=== PATIENT | female | born 1990 | race Caucasian/White ===

== ENCOUNTER 2021-04-16 05:30 | Inpatient (IN) | payer OTHER ==
[2021-04-16 06:46] VITALS: BMI 30.2
[2021-04-16] MEDS ORDERED: Ondansetron PF 4 MG/2 ML Vial IVP PRN ×2 (08:07→15:20)
[2021-04-16] MEDS ORDERED: Promethazine HCl 25 MG/ML VIAL IM PRN ×2 (08:07→15:20)
[2021-04-16] MEDS ORDERED: Lidocaine 1% (PF) 30 ML VIAL SC PRN (08:07)
[2021-04-16] MEDS ORDERED: hydrALAZINE 20 MG/ML VIAL SLOW IVP PRN ×2 (08:07→15:20)
[2021-04-16] MEDS ORDERED: Butorphanol Tartrate 1 MG/ML VIAL SLOW IVP PRN (08:13)
[2021-04-16] MEDS ORDERED: HYDROcodone/Acetaminophen 5/325 mg Tablet PO PRN ×2 (08:13→15:20)
[2021-04-16] MEDS ORDERED: Diphenoxylate HCl/Atropine Tablet PO PRN ×2 (08:13)
[2021-04-16] MEDS ORDERED: Methylergonovine 0.2 MG/ML VIAL IM PRN ×2 (08:13→15:20)
[2021-04-16] MEDS ORDERED: Ibuprofen 800 MG TAB PO PRN (08:13)
[2021-04-16] MEDS ORDERED: Misoprostol 200 MCG TAB PR PRN (08:13)
[2021-04-16] MEDS ORDERED: Docusate 100 MG CAP PO PRN (08:13)
[2021-04-16] MEDS ORDERED: Carboprost 250 MCG/ML AMP IM PRN (08:13)
[2021-04-16] MEDS ORDERED: Acetaminophen 500 MG TAB PO PRN (08:13)
[2021-04-16] MEDS ORDERED: Lactated Ringer's 1,000 ML IV SCH (08:15)
[2021-04-16] MEDS ORDERED: NS w/ Oxytocin 30 units 500 ML IV SCH ×3 (08:15→15:20)
[2021-04-16] MEDS ORDERED: NS w/ Oxytocin 30 units 500 ML IVPB SCH (08:15)
[2021-04-16 08:26] LABS: Hemoglobin 10.5 g/dL (12.0-15.5); Mean Corpuscular HGB CONC 32.4 g/dL (32.0-36.0); Mean Corpuscular Volume 83.3 fl (81.6-98.3); Platelet Count 180 10x3/uL (150-450); RBC Distribution Width 13.6 % (11.5-14.5); Red Blood Cell (RBC) Count 3.89 10x6/uL (3.90-5.03); White Blood Cell (WBC) Count 9.9 10x3/uL (3.5-10.5)
[2021-04-16 08:35] LABS: ALT (SGPT) 12 U/L (8-55); AST (SGOT) 17 U/L (5-34); Albumin 3.5 g/dL (3.5-5.0); Alkaline Phosphatase 83 U/L (40-110); Anion Gap 14 mmol/L (10-20); BUN (Urea Nitrogen) 8 mg/dL (7.0-18.7); Bilirubin, Total 0.2 mg/dL (0.2-1.2); Calc. Creatinine Clearance 171 mL/min (70-130); Calcium 8.5 mg/dL (7.8-10.44); Carbon Dioxide 21 mmol/L (22-29); Chloride 107 mmol/L (98-107); Globulin 2.4 g/dL (2.4-3.5); Glucose 113 mg/dL (70-105); Potassium 3.7 mmol/L (3.5-5.1); Protein, Total 5.9 g/dL (6.0-8.3); Sodium 138 mmol/L (136-145)
[2021-04-16 08:40] LABS: SARS-CoV-2 NAA Rapid Test Not Detected (NotDetected)
[2021-04-16 08:55] LABS: Hep B Surf Ag Non-Reactive S/CO (NonReactive); Syphilis Antibody Nonreactive (Nonreactive); Syphilis Antibody Index 0.05 S/CO (<1.00 Non-Reactive)
[2021-04-16] MEDS ORDERED: NS w/ Oxytocin 30 units 500 ML ONE (08:56)
[2021-04-16 09:00] LABS: HBSAg Index 0.21 S/CO (0-0.99)
[2021-04-16] MEDS ORDERED: Measles/Mumps/Rubella 10 MCG/0.5 ML VIAL SC ONE (15:20)
[2021-04-16] MEDS ORDERED: Varicella virus, LIVE 0.5 ML VIAL SC ONE (15:20)
[2021-04-16] MEDS ORDERED: Benzocaine-Menthol 82.5 ML CAN TOP PRN (15:20)
[2021-04-16] MEDS ORDERED: Zolpidem Tartrate 5 MG TAB PO PRN (15:20)
[2021-04-16] MEDS ORDERED: Preparation H Ointment 28 GM TUBE PR PRN (15:20)
[2021-04-16] MEDS ORDERED: Bisacodyl 10 MG SUPP PR PRN (15:20)
[2021-04-16] MEDS ORDERED: Milk Of Magnesia 30 ML UDCUP PO PRN (15:20)
[2021-04-16] MEDS ORDERED: Misoprostol 200 MCG TAB VAG PRN (15:20)
[2021-04-16] MEDS ORDERED: Boostrix 0.5 ML (Tdap) VIAL IM ONE (15:20)
[2021-04-16] MEDS ORDERED: Lanolin Ointment 7 GM TUBE TOP PRN (15:20)
[2021-04-16] MEDS ORDERED: diphenhydrAMINE 25 MG CAP PO PRN (15:20)
[2021-04-16] MEDS: Ferrous Sulfate 325 MG TAB PO SCH (17:33)
[2021-04-16] MEDS: Docusate Calcium (SURFAK) 240 MG CAP PO SCH (21:00)
[2021-04-16] MEDS: Ibuprofen 800 MG TAB PO SCH (22:00)
[2021-04-17 04:14] LABS: Hemoglobin 9.9 g/dL (12.0-15.5); Mean Corpuscular HGB CONC 32.5 g/dL (32.0-36.0); Mean Corpuscular Hemoglobin 26.7 pg (27.0-33.0); Mean Corpuscular Volume 82.2 fl (81.6-98.3); Mean Platelet Volume 10.5 fl (7.4-10.4); Platelet Count 169 10x3/uL (150-450); RBC Distribution Width 13.5 % (11.5-14.5); Red Blood Cell (RBC) Count 3.71 10x6/uL (3.90-5.03); White Blood Cell (WBC) Count 13.6 10x3/uL (3.5-10.5)
[2021-04-17] MEDS: Ibuprofen 800 MG TAB PO SCH ×2 (04:59→13:31)
[2021-04-17] MEDS: Docusate Calcium (SURFAK) 240 MG CAP PO SCH (08:36)
[2021-04-17] MEDS: Ferrous Sulfate 325 MG TAB PO SCH (08:36)
[2021-04-17] MEDS ORDERED: Prenatal Vitamin 1 TAB PO SCH (09:00)
[2021-04-17 11:37] VITALS: BP 144/76; TEMP 99.1
== END 2021-04-17 17:50 | disposition home or self-care (01) | DRG 807 ==
LOC: CSHLD 06:10 → CSHPP 14:31
PROVIDERS: ADMIT Obstetrics & Gynecology; ATTEND Obstetrics & Gynecology
PROC: 10E0XZZ Delivery of Products of Conception, External Approach (ICD-10-PCS; principal; 2021-04-16)
PROC: 3E033VJ Introduction of Other Hormone into Peripheral Vein, Percutaneous Approach (ICD-10-PCS; 2021-04-16)
DX: O13.4 Gestational [pregnancy-induced] hypertension without significant proteinuria, complicating childbirth (principal); Z37.0 Single live birth; Z20.822 Contact with and (suspected) exposure to COVID-19; Z3A.37 37 weeks gestation of pregnancy; Z91.040 Latex allergy status; Z98.51 Tubal ligation status
CPT/HCPCS: 80053; 85027; 86780; 86850; 86900; 86901; 87340; J2590; J7120; U0002

== ENCOUNTER 2022-12-30 17:39 | Emergency (ER) | payer OTHER ==
[2022-12-30 20:40] LABS: SARS-CoV-2 NAA Rapid Test DETECTED (NotDetected)
== END 2022-12-30 21:20 | disposition home or self-care (01) ==
LOC: CSHERS 17:39
DX: U07.1 COVID-19 (principal)
CPT/HCPCS: 99283